=== PATIENT | female | born 1965 | race Caucasian/White ===

== ENCOUNTER 2024-01-30 06:00 | Day surgery (SDC) | payer BC ==
[~2024-01-30] VITALS: Ht 160 cm; Wt 79.4 kg
[2024-01-30] MEDS ORDERED: CEFAZOLIN SOD 2 GM in D5W 50 ML IV ONE (07:00)
[2024-01-30 07:35] VITALS: O2SAT 100
[2024-01-30] MEDS ORDERED: LR 1,000 ML IV SCH (08:15)
[2024-01-30] MEDS ORDERED: ONDANSETRON HCL 4 MG/2 ML VIAL IVP PRN ×2 (08:15→12:45)
[2024-01-30] MEDS ORDERED: HYDROmorphone 2 MG/ML VIAL IVP PRN (08:15)
[2024-01-30] MEDS ORDERED: ACETAMINOPHEN I.V. 1000 MG 100 ML IV ONE (09:41)
[2024-01-30] MEDS ORDERED: HYDROcodone/ACETAMIN 5-325 MG TAB (NORCO/ VICODIN) PO PRN (12:45)
[2024-01-30] MEDS ORDERED: OXYCODONE/ACETAMINOPHEN 5-325 TABLET PO PRN (12:45)
[2024-01-30] MEDS ORDERED: ONDANSETRON HCL 4 MG/2 ML VIAL ONE (13:10)
[2024-01-30] MEDS ORDERED: DEXTROSE 50% JECT 50 ML DISP.SYRIN ONE (13:10)
[2024-01-30] MEDS ORDERED: NS 1000 ML IV.SOLN IV ONE (13:10)
[2024-01-30] MEDS ORDERED: WATER FOR IRRIGATION,STERILE 1,000 ML IRRIG.SOLN IR ONE (13:10)
[2024-01-30] MEDS ORDERED: ROCURONIUM BROMIDE 10 MG/ML (ZEMURON) ONE (13:10)
[2024-01-30] MEDS ORDERED: GLYCOPYRROLATE 0.2 MG/ML VIAL ONE (13:10)
[2024-01-30] MEDS ORDERED: NEOSTIGMINE METHYLSULFATE 1 MG/ML, 10 ML VIAL ONE (13:10)
[2024-01-30] MEDS ORDERED: fentaNYL CITRATE/PF 100 MCG/2 ML AMP ONE (13:10)
[2024-01-30] MEDS ORDERED: MIDAZOLAM HCL 2 MG/2 ML VIAL (VERSED) ONE (13:10)
[2024-01-30] MEDS ORDERED: LIDOCAINE/EPI 1% 1:100000 20 ML VIAL ONE (13:10)
[2024-01-30] MEDS ORDERED: FUROSEMIDE 40 MG/4 ML VIAL ONE (13:10)
[2024-01-30] MEDS ORDERED: SEVOFLURANE 15 MIN GAS INH ONE (13:10)
[2024-01-30] MEDS ORDERED: LR 1,000 ML IV.SOLN IV ONE (13:10)
[2024-01-30] MEDS ORDERED: KETOROLAC TROMETHAMINE 30 MG VIAL ONE ×2 (13:10→15:59)
[2024-01-30] MEDS ORDERED: ROPIVACAINE HCL/PF 0.2% EPIDURAL 200 ML PLAST..BAG ONE (13:10)
[2024-01-30] MEDS ORDERED: NS IRRIG SOLN 1000 ML IR ONE (13:10)
[2024-01-30] MEDS: HYDROmorphone 1 MG/ML INJ. CARTRIDGE IVP PRN (13:56)
[2024-01-30] MEDS ORDERED: HYDROmorphone 1 MG/ML INJ. CARTRIDGE ONE (13:56)
[2024-01-30] MEDS: ceFAZolin SODIUM 2 GM in D5W 100 ML IV ONE (14:30)
[2024-01-30] MEDS ORDERED: OXYCODONE/ACETAMINOPHEN 5-325 TABLET ONE (15:08)
[2024-01-30] MEDS: OXYCODONE/ACETAMINOPHEN 5-325 TABLET PO PRN (15:09)
[2024-01-30] MEDS: SIMETHICONE 80 MG TAB.CHEW PO SCH (15:54)
[2024-01-30] MEDS ORDERED: SIMETHICONE 80 MG TAB.CHEW ONE (15:55)
[2024-01-30] MEDS ORDERED: KETOROLAC TROMETHAMINE 30 MG VIAL IVP ONE (16:00)
[2024-01-30] MEDS: KETOROLAC TROMETHAMINE 30 MG VIAL IVP PRN (16:14)
[2024-01-30 19:21] VITALS: BP_SYST 121; PULSE 102; RESP 20
== END 2024-01-30 17:23 | disposition home or self-care (01) ==
LOC: SDS 06:00 → SMU 06:00 → SDS 17:23
PROVIDERS: ATTEND Specialist
DX: N95.0 Postmenopausal bleeding (principal); N72 Inflammatory disease of cervix uteri; D25.2 Subserosal leiomyoma of uterus; D26.9 Other benign neoplasm of uterus, unspecified; N83.291 Other ovarian cyst, right side; G43.909 Migraine, unspecified, not intractable, without status migrainosus; Z79.899 Other long term (current) drug therapy; Z85.3 Personal history of malignant neoplasm of breast
CPT/HCPCS: 87081; 58552; 74018; 88307; J0690; J3490; J1885; J3465; J2405; J3010; J1170; J7060 ×2; J7120; J7030; C1727; J0131; J2710; S2900; J1940